=== PATIENT | male | born 1985 | race Caucasian/White ===

== ENCOUNTER 2016-11-10 13:14 | Emergency (ER) | payer MEDICAID ==
[~2016-11-10] VITALS: Ht 185.4 cm; Wt 76.2 kg
--- NOTE | 2016-11-10 13:21 | NUR ---
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 PATIENT IS AAO4, HOWEVER PT DOES NOT REMEMBER WHAT HAPPENED. PATIENT APPEARS IN NO APPARENT DISTRESS. NO SOB NOTED. NO CHEST PAIN. VSS
--- NOTE | 2016-11-10 13:21 | NUR ---
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 PATIENT IS AAO4, HOWEVER PT DOES NOT REMEMBER WHAT HAPPENED. PATIENT APPEARS IN NO APPARENT DISTRESS. NO SOB NOTED. NO CHEST PAIN. VSS
[2016-11-10] MEDS ORDERED: IV NS 0.9% 1,000 ML BAG IV ONE (13:30)
[2016-11-10] MEDS ORDERED: LEVETIRACETAM (250 MG) 250 MG TABLET PO ONE ×2 (16:07→16:12)
[2016-11-10 16:46] VITALS: BP 102/62
--- NOTE | 2016-11-10 16:46 | NUR ---
Patient discharged to home in stable condition. Written and verbal after care instructions given. Patient verbalizes understanding of instruction.
== END 2016-11-10 16:48 | disposition home or self-care (01) ==
LOC: ER 13:15
DX: R56.9 Unspecified convulsions (principal); G40.409 Other generalized epilepsy and epileptic syndromes, not intractable, without status epilepticus
CPT/HCPCS: 36415; 82542; 96360; 99284; A4606; J7030; Z7610